=== PATIENT | male | born 1995 | race American Indian/Alaskan Native ===

== ENCOUNTER 2018-04-22 02:54 | Day surgery (SDC) | payer OTHER ==
[2018-04-22] MEDS ORDERED: Sodium Chloride 0.9% 1,000 ML IV STA (03:32)
--- NOTE | 2018-04-22 03:34 | ED PDOC ---
Arrival/HPI - General Chief Complaint: Male Genitourinary Time Seen by Provider: 04/22/18 03:14 Historian: Patient - History of Present Illness Narrative History of Present Illness (Text): 04/22/18 03:31 Logan Richards is a 22 year old male who presents to the Emergency department complaining of sudden onset of right-sided groin/testicle pain radiating to his right abdomen since 00:00. Patient reports some discomfort when touching his right testicle. Patient also complaining of nausea. Patient denies any fever, chills, vomiting, diarrhea, urinary symptoms, back pain, or any other complaints. Symptom Onset: Gradual Symptom Course: Unchanged Activities at Onset: Light Context: Home Past Medical History - Provider Review Nursing Documentation Reviewed: Yes - Psychiatric Hx Substance Use: No Family/Social History - Physician Review Nursing Documentation Reviewed: Yes Family/Social History: Unknown Family HX Smoking Status: Never Smoked Hx Alcohol Use: Yes Frequency of alcohol use: Socially Hx Substance Use: No Allergies/Home Meds Allergies/Adverse Reactions: Allergies No Known Allergies Allergy (Verified 04/22/18 03:13) Home Medications: Home Meds Medication Instructions Recorded Confirmed No Known Home Med 04/22/18 04/22/18 Review of Systems - Physician Review All systems were reviewed & negative as marked: Yes - Review of Systems Constitutional: Normal. absent: Fevers Eyes: Normal ENT: Normal Respiratory: Normal. absent: SOB, Cough Cardiovascular: Normal. absent: Chest Pain, Other Gastrointestinal: Abdominal Pain, Nausea. absent: Diarrhea, Vomiting, Food Intolerance Genitourinary Male: Normal. absent: Dysuria, Frequency, Hematuria, Urinary Output Changes Musculoskeletal: Normal. absent: Back Pain, Neck Pain Skin: Normal. absent: Rash Neurological: Normal. absent: Headache, Dizziness Endocrine: Normal Hemo/Lymphatic: Normal Psychiatric: Normal Physical Exam Vital Signs Reviewed: Yes Vital Signs Temp Pulse Resp BP Pulse Ox 04/22/18 03:13 98.5 F 88 19 142/88 99 Temperature: Afebrile Blood Pressure: Normal Pulse: Regular Respiratory Rate: Normal Appearance: Positive for: Well-Appearing, Non-Toxic, Comfortable Pain Distress: None Mental Status: Positive for: Alert and Oriented X 3 - Systems Exam Head: Present: Atraumatic, Normocephalic Pupils: Present: PERRL Extroacular Muscles: Present: EOMI Conjunctiva: Present: Normal Mouth: Present: Moist Mucous Membranes Neck: Present: Normal Range of Motion. No: Meningeal Signs, MIDLINE TENDERNESS, Paraspinal Tenderness Respiratory/Chest: Present: Clear to Auscultation, Good Air Exchange. No: Respiratory Distress, Accessory Muscle Use Cardiovascular: Present: Regular Rate and Rhythm, Normal S1, S2. No: Murmurs Abdomen: No: Tenderness, Distention, Peritoneal Signs Genitourinary Male: Present: Normal External Genitalia, Testicle Tenderness (minimal to right testicle superiorly). No: Testicle Swelling Back: Present: Normal Inspection. No: CVA Tenderness, Midline Tenderness, Paraspinal Tenderness Upper Extremity: Present: Normal Inspection. No: Cyanosis, Edema Lower Extremity: Present: Normal Inspection. No: Edema Neurological: Present: GCS=15, CN II-XII Intact, Speech Normal Skin: Present: Warm, Dry, Normal Color. No: Rashes Psychiatric: Present: Alert, Oriented x 3, Normal Insight, Normal Concentration Medical Decision Making ED Course and Treatment: 04/22/18 03:31 Impression: 22 year old male presents with sudden onset of right-sided groin/testicle pain radiating to his right abdomen since 00:00. Plan: -- US Duplex Testes -- Labs -- Urinalysis -- IV fluids -- Zofran -- Toradol -- Reassess and disposition Progress Notes: 04/22/18 05:23 US Duplex Testes Impression: Abnormally decreased flow to the right testicle. No associated sonographic hypo- echogenicity of the right testicle to suggest testicular torsion. Clinical evaluation and follow-up are suggested. Increased vascularity and enlargement of the right epididymis suggestive of right epididymitis. CT Abdomen and Pelvis Impression: Gastroparesis. Uncomplicated diverticulosis. 04/22/18 05:43 Case and results discussed in depth with Dr. Villalobos, urologist material control specialist, who is aware and agrees with plan. States he will take the pt to the OR this morning given possibility of intermittent testicular torsion. executive vice president of sales notified. 04/22/18 05:59 executive vice president of sales to ED to evaluate patient. - Lab Interpretations I have reviewed the lab results: Yes - RAD Interpretation Radiology Orders: 04/22/18 03:25 TESTES DUPLEX COMPLETE [US] Stat Mother Repairer: Radiologist - Scribe Statement The provider has reviewed the documentation as recorded by the Scribe Joie Len Provider Matthewibe Attestation: All medical record entries made by the Matthewibtawanda were at my direction and personally dictated by me. I have reviewed the chart and agree that the record accurately reflects my personal performance of the history, physical exam, medical decision making, and the department course for this patient. I have also personally directed, reviewed, and agree with the discharge instructions and disposition. Disposition/Present on Arrival - Present on Arrival Any Indicators Present on Arrival: No History of DVT/PE: No History of Uncontrolled Diabetes: No Urinary Catheter: No History of Decub. Ulcer: No History Surgical Site Infection Following: None - Disposition Have Diagnosis and Disposition been Completed?: Yes Diagnosis: Abdominal pain, Testicular pain Disposition: HOSPITALIZED Disposition Time: 06:29 Condition: STABLE
[2018-04-22 05:37] LABS: PH,URINE 8.5 (4.7-8.0); URINE BILIRUBIN NEGATIVE (NEGATIVE); URINE BLOOD NEGATIVE (NEGATIVE); URINE GLUCOSE (UA) NEGATIVE (NEGATIVE); URINE LEUKOCYTE ESTERASE NEGATIVE Leu/uL (NEGATIVE); URINE PROTEIN 30 mg/dL (<30 mg/dL)
[2018-04-22 05:40] LABS: URINE APPEARANCE CLEAR (CLEAR); URINE COLOR YELLOW (YELLOW)
[2018-04-22 05:45] LABS: URINE RBC 0 - 2 /hpf (0-2); URINE WBC 0 - 2 /hpf (0-6)
[2018-04-22 05:46] LABS: URINE AMORPHOUS SEDIMENT FEW; URINE BACTERIA RARE (NEG); URINE EPITHELIAL CELLS 0 - 2 /hpf (0-5)
--- NOTE | 2018-04-22 06:05 | CP.PCM.CON ---
Past Patient History - Past Social History Smoking Status: Never Smoked - PSYCHIATRIC Hx Substance Use: No Meds Allergies/Adverse Reactions: Allergies Allergy/AdvReac Type Severity Reaction Status Date / Time No Known Allergies Allergy Verified 04/22/18 03:13 - Medications Medications: Current Medications Sodium Chloride (Sodium Chloride 0.9%) 1,000 mls @ 100 mls/hr IV .Q10H MBAEL Results - Vital Signs Recent Vital Signs: Last Vital Signs Temp 98.5 F 04/22/18 03:13 Pulse 88 04/22/18 03:13 Resp 19 04/22/18 03:13 BP 142/88 04/22/18 03:13 Pulse Ox 99 04/22/18 03:13 - Labs Labs: Laboratory Results - last 24 hr 04/22/18 05:20 Urine Color Yellow Urine Appearance Clear Urine pH 8.5 Ur Specific [place] 1.015 Urine Protein 30 H Urine Glucose (UA) Negative Urine Ketones Trace H Urine Blood Negative Urine Nitrate Negative Urine Bilirubin Negative Urine Urobilinogen 1.0 H Ur Leukocyte Esterase Negative Urine RBC 0 - 2 Urine WBC 0 - 2 Ur Epithelial Cells 0 - 2 Amorphous Sediment Few Urine Bacteria Rare Assessment & Plan - Date & Time Time: 06:05
[2018-04-22] MEDS: Sodium Chloride 0.9% 1,000 ML IV SCH ×2 (06:10→13:36)
[2018-04-22 06:35] LABS: HEMOGLOBIN 14.5 g/dL (14.0-18.0); MEAN CELL VOLUME 85.9 fl (80.0-105.0); MEAN CORPUSCULAR HEMOGLOBIN 28.8 pg (25.0-35.0); MEAN CORPUSCULAR HGB CONC 33.6 g/dl (31.0-37.0); MEAN PLATELET VOLUME 9.8 fl (7.0-11.0); RBC 5.03 10^6/uL (3.5-6.1); RED CELL DISTRIBUTION WIDTH 13.3 % (11.5-14.5); WHITE BLOOD COUNT 15.1 10^3/ul (4.5-11.0)
[2018-04-22 06:47] LABS: ALB/GLOB RATIO 1.2 (1.1-1.8); ALBUMIN 4.6 g/dL (3.0-4.8); ALT/SGPT 25 U/L (7-56); AST/SGOT 30 U/L (17-59); BLOOD UREA NITROGEN 16 mg/dL (7-21); CALCIUM 9.4 mg/dL (8.4-10.5); GFR NON-AFRICAN AMERICAN > 60
[2018-04-22 06:51] LABS: INR 1.05; PARTIAL THROMBOPLASTIN TIME 29.3 Seconds (25.1-36.5); PROTHROMBIN TIME 12.1 SECONDS (9.4-12.5)
--- NOTE | 2018-04-22 07:03 | CP.PCM.HP ---
History of Present Illness - History of Present Illness History of Present Illness: MR Richards is 22 yr old male with no pmh and no psh who presented to the [facility] ED c/o sudden onset testicular pain for several hours. He states that the pain is intermittent, located in his right testicular/ inguinal area and radiated to his RLQ. He has vomited once in the ED this evening but otherwise denies WALLACE, nausea, CP, SOB, dysuria, changes in stool, extremity pain. PMH: denies PSH: denies ALL: NKDA Family history: negative for bleeding disorders and problems with anesthesia Present on Admission - Present on Admission Any Indicators Present on Admission: No Review of Systems - Review of Systems All systems: reviewed and no additional remarkable complaints except Review of Systems: as per HPI Past Patient History - Past Social History Smoking Status: Never Smoked - PSYCHIATRIC Hx Substance Use: No Meds Allergies/Adverse Reactions: Allergies Allergy/AdvReac Type Severity Reaction Status Date / Time No Known Allergies Allergy Verified 04/22/18 03:13 Physical Exam - Constitutional Appears: Well, Non-toxic, No Acute Distress - Head Exam Head Exam: ATRAUMATIC, NORMOCEPHALIC - Eye Exam Eye Exam: EOMI - ENT Exam ENT Exam: Mucous Membranes Moist - Respiratory Exam Respiratory Exam: NORMAL BREATHING PATTERN - Cardiovascular Exam Cardiovascular Exam: REGULAR RHYTHM - GI/Abdominal Exam GI & Abdominal Exam: Soft, Tenderness (mild RLQ tenderness no guarding). absent: Distended, Firm, Guarding, Rebound, Rigid - Exam Exam: Circumcision, Testicular Tenderness (right tiesticle is Tender to palpation), Testicular Vertical Lie. absent: Scrotal Swelling, Uretheral Discharge - Extremities Exam Extremities exam: Positive for: pedal pulses present. Negative for: calf tenderness, pedal edema, tenderness - Neurological Exam Neurological exam: Alert, Oriented x3 - Psychiatric Exam Psychiatric exam: Normal Affect, Normal Mood - Skin Skin Exam: Dry, Intact, Normal Color, Warm Results - Vital Signs Recent Vital Signs: Last Vital Signs Temp 98.9 F 04/22/18 06:37 Pulse 80 04/22/18 06:37 Resp 18 04/22/18 06:37 BP 148/69 04/22/18 06:37 Pulse Ox 100 04/22/18 06:37 - Labs Result Diagrams: 04/22/18 06:22 04/22/18 06:22 Labs: Laboratory Results - last 24 hr 10/09/18 10/09/18 10/09/18 05:20 06:22 06:22 WBC 15.1 H RBC 5.03 Hgb 14.5 Hct 43.2 MCV 85.9 MCH 28.8 MCHC 33.6 RDW 13.3 Plt Count 304 MPV 9.8 PT INR APTT Sodium 141 Potassium 4.3 Chloride 103 Carbon Dioxide 28 Anion Gap 14 BUN 16 Creatinine 1.0 Est GFR ( Amer) > 60 Est GFR (Non-Af Amer) > 60 Random Glucose 120 H Calcium 9.4 Total Bilirubin 0.3 AST 30 ALT 25 Alkaline Phosphatase 73 Total Protein 8.5 H Albumin 4.6 Globulin 3.9 Albumin/Globulin Ratio 1.2 Urine Color Yellow Urine Appearance Clear Urine pH 8.5 Ur Specific [place] 1.015 Urine Protein 30 H Urine Glucose (UA) Negative Urine Ketones Trace H Urine Blood Negative Urine Nitrate Negative Urine Bilirubin Negative Urine Urobilinogen 1.0 H Ur Leukocyte Esterase Negative Urine RBC 0 - 2 Urine WBC 0 - 2 Ur Epithelial Cells 0 - 2 Amorphous Sediment Few Urine Bacteria Rare 04/22/18 06:22 WBC RBC Hgb Hct MCV MCH MCHC RDW Plt Count MPV PT 12.1 INR 1.05 APTT 29.3 Sodium Potassium Chloride Carbon Dioxide Anion Gap BUN Creatinine Est GFR ( Amer) Est GFR (Non-Af Amer) Random Glucose Calcium Total Bilirubin AST ALT Alkaline Phosphatase Total Protein Albumin Globulin Albumin/Globulin Ratio Urine Color Urine Appearance Urine pH Ur Specific [place] Urine Protein Urine Glucose (UA) Urine Ketones Urine Blood Urine Nitrate Urine Bilirubin Urine Urobilinogen Ur Leukocyte Esterase Urine RBC Urine WBC Ur Epithelial Cells Amorphous Sediment Urine Bacteria Assessment & Plan - Assessment and Plan (Free Text) Assessment: 22 yr old patient with right testicular torsion Plan: Right testicular torsion: - patient will be taken for emergent OR detorsion with Dr. Villalobos - NPO - CBC, CMP - PT, PTT, INR - nursing supervisor plating and point assembly Merlyn notified of emergent case - patient will be consented by Dr villalobos prior to procedure Patient discussed with Dr. Griselda Lino, PGY 1 - Date & Time Date: 04/22/18 Time: 05:55
[2018-04-22] MEDS ORDERED: Propofol 10 mg/ml Inj (20 ML) ONE (07:38)
[2018-04-22] MEDS ORDERED: Midazolam 2 MG/2 ML VIAL ONE (07:38)
[2018-04-22] MEDS ORDERED: Succinylcholine 200 mg/10 ml Inj IV ONE (07:39)
[2018-04-22] MEDS ORDERED: Bupivacaine 0.5% 50 ML IJ ONE (07:48)
[2018-04-22] MEDS ORDERED: Lidocaine 1% Inj (20ml) ONE (07:49)
[2018-04-22] MEDS ORDERED: Naloxone 0.4 mg/ml Inj (Adult) ONE (08:36)
[2018-04-22] MEDS ORDERED: HYDROmorphone 1 mg/ml ISec IVP PRN (08:54)
--- NOTE | 2018-04-22 08:56 | PCM.SURG1 ---
Surgeon's Initial Post Op Note - Surgeon's Notes Surgeon: Dr. Villalobos Invoice Classification Clerk: Dr. Botello PGY3 Type of Anesthesia: General Endo Pre-Operative Diagnosis: Right Testicular Torsion Operative Findings: See operative dictation Post-Operative Diagnosis: Right testicular appendix torsion Operation Performed: Scrotal exploration, removal of testicular appendix Specimen/Specimens Removed: Testicular appendix Estimated Blood Loss: EBL {In ML}: 1 Blood Products Given: N/A Drains Used: No Drains Post-Op Condition: Good Date of Surgery/Procedure: 04/22/18 Time of Surgery/Procedure: 08:56
[2018-04-22] MEDS ORDERED: Lactated Ringer's 1,000 ML IV SCH (09:00)
--- NOTE | 2018-04-22 09:28 | OP ---
PROCEDURE DATE: 04/22/2018 INDICATIONS: Mr. Richards is a 22-year-old male presented to the [place] [facility] early this morning with complaints of acute onset right-sided testicular pain. He had been examined by the emergency room staff, who performed a noncontrast CT of the abdomen and pelvis and did not find any nephrolithiasis and then performed an ultrasound of the scrotum identifying low flow to the right testicle and hyperemia of the right epididymis consistent with torsion of the testicle. The left testicle appeared to have normal flow. Upon these findings, I was notified emergently at 5:45 a.m. and by 6:40, I was in the hospital, ready to take the patient to the operating room for a scrotal exploration. PREOPERATIVE DIAGNOSIS: Right testicular torsion. POSTOPERATIVE DIAGNOSIS: Right torsion of the appendix testis. PROCEDURE: Scrotal exploration, excision of torsed appendix testis. ESTIMATED BLOOD LOSS FOR THE PROCEDURE: Minimal. ANESTHESIA: General. SURGEON: Theo Villalobos M.D. TUBE ROOM CASHIER: Lenny Botello DO. COMPLICATIONS: Clean case. OPERATIVE DETAILS: The patient was brought to the operating room, placed in the supine position. General anesthesia was administered. When then prepped and draped the patient in the usual sterile fashion. Called time-out verifying the patient's name, the procedure, antibiotics and allergies. Proceeded to make a midline incision of the median raphae of the scrotum. The right testicle was delivered through this incision after opening up the tunica vaginalis. The testicle was inspected. The testicle appeared to be with normal blood flow and pink tissue. There was no torsion of the cord; however, there was torsion of the appendix testis, which appeared to be hyperemic and red and quite angry in appearance. Given these findings, I excised this appendix testis on the right testicle and sent for pathology for analysis marked as a right appendix testis. Electrocautery was used at the base of the appendix testis to control any bleeding. Excellent hemostasis was achieved. The testicle was then returned its location within the tunica in the normal anatomical lie. The tunica was closed using a running stitch using 2-0 Vicryl suture. The testicle and tunica vaginalis were then replaced back in the Dart[place] fascia and the [place] was closed separately again using 2-0 Vicryl in a running suture fashion and finally, the skin was closed using 2-0 Vicryl in a vertical mattress interrupted stitch fashion. Dermabond was applied to the wound. Scrotal support and fluff were applied and the patient was awakened from anesthesia. Of note, a combination of 0.5% Marcaine and 1% lidocaine was used for local anesthesia. The patient tolerated the procedure well. Given the patient's marked obesity, I will keep the patient for observation after general anesthesia and likely discharge him home postop day 1 to follow up with me in the office. Theo Villalobos M.D. [place]
--- NOTE | 2018-04-22 09:32 | CT ---
Date of service: 04/22/2018 PROCEDURE: CT Abdomen and Pelvis without intravenous contrast HISTORY: right flank pain COMPARISON: None. TECHNIQUE: Without contrast.. Contrast dose: Radiation dose: Total exam DLP = 1882 mGy-cm. This CT exam was performed using one or more of the following dose reduction techniques: Automated exposure control, adjustment of the mA and/or kV according to patient size, and/or use of iterative reconstruction technique. FINDINGS: LOWER THORAX: Unremarkable. LIVER: Unremarkable. No gross lesion or ductal dilatation. GALLBLADDER AND BILE DUCTS: Unremarkable. PANCREAS: Unremarkable. No gross lesion or ductal dilatation. SPLEEN: Unremarkable. ADRENALS: Unremarkable. No mass. KIDNEYS AND URETERS: Unremarkable. No hydronephrosis. No solid mass. VASCULATURE: Unremarkable. No aortic aneurysm. BOWEL: Unremarkable. No obstruction. No gross mural thickening. APPENDIX: Unremarkable. Normal appendix. PERITONEUM: Unremarkable. No free fluid. No free air. LYMPH NODES: Unremarkable. No enlarged lymph nodes. BLADDER: Unremarkable. REPRODUCTIVE: Unremarkable. BONES: No acute fracture. OTHER FINDINGS: The report concurs with the preliminary [facility] report IMPRESSION: Unremarkable non contrast enhanced CT of the abdomen and pelvis.
--- NOTE | 2018-04-22 10:10 | US ---
Date of service: 04/22/2018 HISTORY: pain TECHNIQUE: Realtime sonography through the scrotum with color and doppler flow. COMPARISON: None Available. FINDINGS: RIGHT TESTICLE: Measures 4.3 x 2.3 x 2.5 cm. There is no documented flow in the right testicle. RIGHT EPIDIDYMIS: The epididymis is enlarged, the body measures approximately 3.5 x 1.7 x 1.8 cm. There is diffuse heterogeneous echotexture and increased vascularity on color flow imaging. LEFT TESTICLE: Measures 4.1 x 1.9 x 2.3 cm. Normal echotexture and flow. LEFT EPIDIDYMIS: Epididymal head measures 0.9 x 0.7 x 0.9 cm. Grossly unremarkable appearance with normal flow. HYDROCELE: None. VARICOCELE: None. OTHER FINDINGS: None. IMPRESSION: 1. Absent flow in the right testicle concerning for torsion. 2. Enlarged body of the epididymis with abnormal echotexture but no documented increased flow is nonspecific and could be related to nonspecific/chronic inflammation or edema. A preliminary report was provided by [employer].
[2018-04-22] MEDS: cefTRIAXone 1 gm 1 GM/100 ML BAG IVPB SCH (11:04)
[2018-04-22 15:05] VITALS: BMI 40.8
[2018-04-22] MEDS ORDERED: Pneumococcal 23-Valent Vaccine IM ONE (15:06)
[2018-04-22] MEDS ORDERED: Influenza Vaccine 60 mcg/0.5 mL SYR (4YR UP) IM ONE (15:06)
[2018-04-22 22:48] VITALS: RESP 20
[2018-04-23 08:19] VITALS: BP 176/86; PULSE 82; TEMP 98.1; O2SAT 99
[2018-04-23] MEDS: cefTRIAXone 1 gm 1 GM/100 ML BAG IVPB SCH (10:33)
== END 2018-04-23 12:48 | disposition home or self-care (01) ==
LOC: ED 02:54 → UNDOADMOB 06:06 → ERH 06:06 → ED 06:55 → SDS 07:40 → 5RNO 11:32 → SDS 04-23 12:48
PROVIDERS: ATTEND Urology
DX: N44.03 Torsion of appendix testis (principal); R10.9 Unspecified abdominal pain
CPT/HCPCS: 54512; 74176; 80053; 81001; 85027; 85610; 85730; 88304; 93975; 96374; 96375; 99285; J0330; J0690; J0696; J1885; J2250; J2310; J2405; J2704; J2765; J3010; J7030